=== PATIENT | female | born 1990 | race Caucasian/White ===

== ENCOUNTER 2017-01-18 21:09 | Emergency (ER) | payer OTHER ==
[~2017-01-18] VITALS: Ht 149.9 cm; Wt 135.1 kg
[2017-01-18 21:12] VITALS: BP 136/84
[2017-01-18] MEDS ORDERED: HYDROcodone/APAP 5/325 TABLET PO PRN (22:00)
[2017-01-18] MEDS ORDERED: HYDROcodone/APAP 5/325 TABLET ONE (22:06)
== END 2017-01-18 22:59 | disposition home or self-care (01) ==
LOC: ED 22:36
DX: S93.612A Sprain of tarsal ligament of left foot, initial encounter (principal); S93.422A Sprain of deltoid ligament of left ankle, initial encounter; W10.9XXA Fall (on) (from) unspecified stairs and steps, initial encounter; Y93.89 Activity, other specified; Y92.89 Other specified places as the place of occurrence of the external cause; Y99.8 Other external cause status
CPT/HCPCS: 29515